=== PATIENT | male | born 1955 | race Caucasian/White ===

== ENCOUNTER 2017-12-18 17:41 | Observation (INO) | payer OTHER ==
[~2017-12-18] VITALS: Ht 185.4 cm; Wt 107.7 kg
--- NOTE | 2017-12-18 18:34 | ED GI/GU/ABDOMINAL COMPLAINT ---
History of Present Illness General Chief Complaint: Abdominal Pain/Flank Pain Stated Complaint: ABD PAIN S/P SURGERY ?PER STONES IN BLADDER Source: patient Exam Limitations: no limitations Vital Signs & Intake/Output Vital Signs & Intake/Output Vital Signs Date Time Temp Pulse Resp B/P B/P Pulse O2 O2 Flow FiO2 Mean Ox Delivery Rate 12/19 2055 99.6 66 16 132/62 96 Room Air 12/18 1944 73 18 144/76 95 Room Air 12/18 1928 Room Air 12/18 1749 98.8 76 18 133/82 98 Room Air Allergies Coded Allergies: No Known Allergies (12/15/17) Triage Note: 62 YO MALE TO TRIAGE BY DR HERMAN FOR EVAL OF HUMPHREY NOT DRAINING AND BLOOD IN HUMPHREY BAG. PT HAD STONES FROM BLADDER REMOVED TODAY, STATES AFTER HE WENT HOME HE HAD SEVER PAIN IN THE L KIDNEY REGION AND NOW SOME BLOOD IN THE HUMPHREY BAG AND URINE IS DRAINING SLOW. DR DAVILA WOULD LIKE TO BE NOTIFIED. Triage Nurses Notes Reviewed? yes Onset: Abrupt Duration: hour(s):, constant Location: generalized abdomen HPI: Pt is a 62 y/o M PMHx s/p mechanical TAVR in 1999 on coumadin, renal calculi s/p lithotrypsy w/ cystoscopy today complaining of right sided flank pain and vianney hematuria x 2 hours. Pt had the procedure this morning w/o complications and a humphrey leg bag placed. Shortly after arriving home, pt noticed a right sided flank pain and vianney hematuria in the bag. Pt then felt subjective chills. Pt took a meloxicam at home which brought relief. Pt currently is not in pain, denies N/V/D/C, chest pain, difficulty breathing, dizziness. P (Gregory De La Paz) Past History Travel History Traveled to [place] past 21 day No Medical History Any Pertinent Medical History? see below for history Neurological: NONE EENT: NONE Cardiovascular: hypertension, hyperlipidemia, Mechanical aortic valve replacement Respiratory: NONE Gastrointestinal: NONE Hepatic: NONE Renal: NONE Musculoskeletal: NONE Psychiatric: NONE Endocrine: NONE Blood Disorders: NONE Cancer(s): NONE AUDIO RECORDING ENGINEER/Reproductive: NONE Surgical History Surgical History: TAVR mechanical Psychosocial History Tobacco Use: Never used Family History Hx Contributory? Yes (Gregory De La Paz) Review of Systems Review of Systems Constitutional: Reports: see HPI. EENTM: Reports: no symptoms. Respiratory: Reports: no symptoms. Cardiovascular: Denies: see HPI. GI: Denies: see HPI. Genitourinary: Reports: see HPI. Musculoskeletal: Reports: no symptoms. Skin: Reports: no symptoms. Neurological/Psychological: Reports: no symptoms. Hematologic/Endocrine: Reports: see HPI. Immunologic/Allergic: Reports: no symptoms. All Other Systems: Reviewed and Negative (Gregory De La Paz) Physical Exam Physical Exam General Appearance: well developed/nourished, no apparent distress, alert Head: atraumatic, normal appearance Eyes: Bilateral: normal appearance. Neck: normal inspection, supple Respiratory: normal breath sounds, chest non-tender, no respiratory distress, lungs clear Cardiovascular: regular rate/rhythm Gastrointestinal: normal bowel sounds, soft, non-tender, No CVA tenderness, No organomegaly Male Genitals: Humphrey catheter placed, blood around site of insertion, leg bag is a Luke-Aid color, no clots appreciated Extremities: normal range of motion Neurologic/Psych: awake, alert, oriented x 3 Skin: intact, normal color, warm/dry Core Measures ACS in differential dx? No Sepsis Present: No Sepsis Focused Exam Completed? Yes (Gregory De La Paz) Progress Differential Diagnosis: ureterolithiasis, urinary retention, UTI/pyelo Plan of Care: Orders Procedure Date/time Status CBC WITHOUT DIFFERENTIAL 12/20 06 Active BASIC ELECTROLYTES PLUS BUN&CR 12/20 06 Active Nothing by Mouth 12/[address] in observation 12/19 2215 Active ED Holding Orders 12/19 2215 Active Saline Lock 12/18 2154 Active Pathway - chart 12/18 2154 Active Patient Data 12/18 2154 Active Code Status 12/18 2154 Active Continuous Bladder Irrigation 12/18 1952 Active CULTURE,URINE 12/18 1908 Active PARTIAL THROMBOPLASTIN TIME 12/18 183 Complete PROTHROMBIN TIME 12/18 183 Complete COMPREHENSIVE METABOLIC PANEL 12/18 183 Complete CBC WITHOUT DIFFERENTIAL 12/18 183 Complete VTE Mechanical Prophylaxis 12/18 UNK Active Vital Signs 12/18 UNK Active MISTAKE 12/18 UNK Active Intake & Output 12/18 UNK Active Humphrey, Insertion/Removal/Asses 12/18 UNK Active Activity/Ambulation 12/18 UNK Active Current Medications Sig/Quinn Start time Last Medication Dose Stop Time Status Admin Atorvastatin Calcium 40 MG 1700 12/19 170 UNVr (Lipitor) Citalopram 10 MG DAILY 12/19 899 UNVr Hydrobromide (Celexa) Ezetimibe 10 MG DAILY 12/19 899 UNVr (Zetia) Metoprolol Tartrate 25 MG BID 12/19 899 UNVr (Lopressor) Acetaminophen 1,000 MG Q6P PRN 12/18 2199 UNVr (Ofirmev) N/A 1 UNIT (No Carrier) Morphine Sulfate 2 MG Q4P PRN 12/18 2199 AC (MORPHINE SULFATE) Morphine Sulfate 4 MG Q4P PRN 12/18 2199 AC (MORPHINE SULFATE) Ondansetron HCl 4 MG Q8P PRN 12/18 2199 AC (Zofran) Laboratory Tests 12/18/17 1852: Anion Gap 7, Estimated GFR > 60, BUN/Creatinine Ratio 19.0, Glucose 101 H, Calcium 9.5, Total Bilirubin 1.2, AST 41, ALT 65, Alkaline Phosphatase 44, Total Protein 7.0, Albumin 4.2, Globulin 2.8, Albumin/Globulin Ratio 1.5, PT 12.1, INR 1.11, APTT 29, CBC w Diff NO MAN DIFF REQ, RBC 4.52 L, MCV 88.2, MCH 29.7, MCHC 33.7, RDW 13.7, MPV 8.1, Gran % 81.2 H, Lymphocytes % 10.6 L, Monocytes % 7.6, Eosinophils % 0.3, Basophils % 0.3, Absolute Granulocytes 8.3 H, Absolute Lymphocytes 1.1 L, Absolute Monocytes 0.8 H, Absolute Eosinophils 0, Absolute Basophils 0 Microbiology 12/18 1745 URINE ROUT: Urine Culture - RECD Initial ED EKG: none Comments: 12/18/2017 9:57:59 PM Patient Humphrey catheter is becoming occluded. His can require manual irrigation by nurses. Spoke with urologist and he wants the patient to be admitted overnight for observation. (Gregory De La Paz) Departure Departure Disposition: STILL A PATIENT Condition: Stable Clinical Impression Primary Impression: Clot hematuria Secondary Impressions: Humphrey catheter problem Referrals: Jose Ramon Stein MD (PCP/Family) Departure Forms: Customer Survey General Discharge Information Observation Note Spoke With: Juanito ROUSE,Leonid Resendiz Physician Advisor Notified: AZIZA ROUSE,NAVJOT Connor Place Patient In: Non-ED OBS Care Area Rationale for Observation: My rational for observation is as follows . Patient will require continuous bladder irrigation. Neurology consultation. Suctioning of the Humphrey catheter. Repeat H&H. (Gregory De La Paz) PA/WHEEL CLEANER Co-Sign Statement Statement: ED Attending supervision documentation- [X] I saw and evaluated the patient. I have also reviewed all the pertinent lab results and diagnostic results. I agree with the findings and the plan of care as documented in the PA's/WHEEL CLEANER's documentation. [X] I have reviewed the ED Record and agree with the PA's/WHEEL CLEANER's documentation. [] Additions or exceptions (if any) to the PAs/WHEEL CLEANER's note and plan are summarized below: [PTTO BE PLACED IN OBS FORHEMATURIA ON CBI] (Aziza ORUSE,Navjot Connor)
[2017-12-18 19:04] LABS: ABSOLUTE BASOPHIL COUNT 0 /CUMM (0.0-0.2); ABSOLUTE EOSINOPHIL COUNT 0 /CUMM (0.0-0.7); ABSOLUTE GRANULOCYTE CT 8.3 /CUMM (1.4-6.5); ABSOLUTE LYMPH COUNT 1.1 /CUMM (1.2-3.4); ABSOLUTE MONOCYTE COUNT 0.8 /CUMM (0.10-0.60); BASOPHIL % 0.3 % (0.0-2.0); EOSINOPHIL % 0.3 % (0-5); GRANULOCYTE % 81.2 % (42.2-75.2); HEMATOCRIT 39.9 % (42-52); MEAN CORPUSCULAR HGB 29.7 PG (27.0-31.0); MEAN CORPUSCULAR HGB CONC 33.7 G/DL (33.0-37.0); MEAN CORPUSCULAR VOLUME 88.2 FL (80.0-94.0); MEAN PLATELET VOLUME 8.1 FL (7.4-10.4); PLATELET COUNT 154 /CUMM (130-400); RBC DISTRIBUTION WIDTH 13.7 % (11.5-14.5); RED BLOOD CELL CT 4.52 /CUMM (4.70-6.10); WHITE BLOOD CELL COUNT 10.3 /CUMM (4.8-10.8)
[2017-12-18 19:16] LABS: PT 12.1 SEC (9.4-12.5); PTT 29 SEC (25-37)
[2017-12-18 23:30] VITALS: BP 130/84
[2017-12-19 00:52] VITALS: BP 120/60
[2017-12-19 06:35] VITALS: BP 120/82
--- NOTE | 2017-12-19 07:02 | History & Physical Pre-Op ---
General Information and HPI Source of Information: patient, family Exam Limitations: no limitations History of Present Illness: This patient underwent cystoscopy and laser lithotripsy of bladder stones yesterday. He was discharged with a correia. He returned to the ER with suprapubic pain and his correia not draining. A few small clots were irrigated out and CBI started. He was admitted. 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 EENT: NONE Cardiovascular: hypertension, hyperlipidemia, Mechanical aortic valve replacement Respiratory: NONE Gastrointestinal: APPENDECTOMY Hepatic: NONE Renal: nephrolithiasis, CYSTO/LITHOPRIPSY 12/18/17 Musculoskeletal: NONE Psychiatric: NONE Endocrine: NONE Blood Disorders: NONE Cancer(s): NONE RECORD TESTER/Reproductive: NONE Isolation History: Standard Surgical History Pertinent Surgical History: TAVR mechanical Past Family/Social History Psychosocial History Smoking Status: Never Smoked Exam & Diagnostic Data Last 24 Hrs of Vital Signs/I&O Vital Signs Date Time Temp Pulse Resp B/P B/P Pulse O2 O2 Flow FiO2 Mean Ox Delivery Rate 12/19 0635 98.8 75 18 120/82 96 12/19 0052 66 120/60 12/18 2330 99.0 78 18 130/84 93 Room Air 12/18 2216 99.3 77 18 137/73 94 Room Air 12/18 2056 99.6 66 16 132/62 96 Room Air 12/18 1944 73 18 144/76 95 Room Air 12/18 1928 Room Air 12/18 1749 98.8 76 18 133/82 98 Room Air Intake & Output 12/19 0800 12/19 0000 12/18 1600 Intake Total 9000 3000 Output Total 1150 300 Balance 7850 2700 Intake, Oral 0 Intake, Other 9000 3000 Number 0 Bowel Movements Output, Urine 1150 300 Patient 237 lb Weight No distress Heart: Irregularly irregular Lungs: clear Back: no CVA tenderness Abd: soft and non tender Genitalia: 3-way correia in place. CBI running with completely clear drainage Laboratory Tests 12/18 185 Chemistry Sodium (137 - 145 mmol/L) 136 L Potassium (3.5 - 5.1 mmol/L) 3.9 Chloride (98 - 107 mmol/L) 104 Carbon Dioxide (22 - 30 mmol/L) 26 Anion Gap (5 - 16) 7 BUN (9 - 20 mg/dL) 19 Creatinine (0.7 - 1.2 mg/dL) 1.0 Estimated GFR (>60 ml/min) > 60 BUN/Creatinine Ratio (7 - 25 %) 19.0 Glucose (65 - 99 mg/dL) 101 H Calcium (8.4 - 10.2 mg/dL) 9.5 Total Bilirubin (0.2 - 1.3 mg/dL) 1.2 AST (17 - 59 U/L) 41 ALT (21 - 72 U/L) 65 Alkaline Phosphatase (< 127 U/L) 44 Total Protein (6.3 - 8.2 g/dL) 7.0 Albumin (3.5 - 5.0 g/dL) 4.2 Globulin (1.9 - 4.2 gm/dL) 2.8 Albumin/Globulin Ratio (1.1 - 2.2 %) 1.5 Coagulation PT (9.4 - 12.5 SEC) 12.1 INR (0.90 - 1.17) 1.11 APTT (25 - 37 SEC) 29 Hematology CBC w Diff NO MAN DIFF REQ WBC (4.8 - 10.8 /CUMM) 10.3 RBC (4.70 - 6.10 /CUMM) 4.52 L Hgb (14.0 - 18.0 G/DL) 13.4 L Hct (42 - 52 %) 39.9 L MCV (80.0 - 94.0 FL) 88.2 MCH (27.0 - 31.0 PG) 29.7 MCHC (33.0 - 37.0 G/DL) 33.7 RDW (11.5 - 14.5 %) 13.7 Plt Count (130 - 400 /CUMM) 154 MPV (7.4 - 10.4 FL) 8.1 Gran % (42.2 - 75.2 %) 81.2 H Lymphocytes % (20.5 - 51.1 %) 10.6 L Monocytes % (1.7 - 9.3 %) 7.6 Eosinophils % (0 - 5 %) 0.3 Basophils % (0.0 - 2.0 %) 0.3 Absolute Granulocytes (1.4 - 6.5 /CUMM) 8.3 H Absolute Lymphocytes (1.2 - 3.4 /CUMM) 1.1 L Absolute Monocytes (0.10 - 0.60 /CUMM) 0.8 H Absolute Eosinophils (0.0 - 0.7 /CUMM) 0 Absolute Basophils (0.0 - 0.2 /CUMM) 0 Assessment/Plan Assessment/Plan: Imp: 1. s/p cystoscopy and laser litho of bladder stones with post op hematuria. Now much improved 2. Hx of A-fib and mechanical heart valve Plan: 1. Stop CBI. Continue correia 2. If urine remains clear this AM will likley discharge home with correia later today 3. Continue to hold coumadin As Ranked By This Provider Problem List: 1. Clot hematuria 2. Correia catheter problem
--- NOTE | 2017-12-19 07:25 | Patient Discharge Instructions ---
Discharge Instructions General Discharge Information You were seen/treated for: NEPHROLITIASIS You had these procedures: LITHROTRIPSY WITH CONTINUOUS BLADDER IRRIGATION CATHETER Watch for these problems: BLOOD CLOTS, EXCESSIVE BLEEDING INTO THE HUMPHREY BAG, PAIN OR PRESSURE WITH VOIDING, FEVERS OR CHILLS Call Surgeon to remove: Other (HUMPHREY MANAGEMENT) Special Instructions: RESUME HOME COUMADIN DOSE ON 12/21/17 HUMPHREY TO GRAVITY Diet Continue normal diet: Yes Activity Full Activity/No Limits: No Activity Self Limited: Yes Acute Coronary Syndrome Inclusion Criteria At DC or during hospital stay patient has or had the following: ACS DIAGNOSIS No Discharge Core Measures Meds if any: Prescribed or Continued at Discharge MAGGI/ARB if EF <40% No Aspirin No Meds if any: NOT Prescribed or Continued at Discharge Congestive Heart Failure Inclusion Criteria At DC or during hospital stay patient has or had the following: CHF DIAGNOSIS No Discharge Core Measures Meds if any: Prescribed or Continued at Discharge Meds if any: NOT Prescribed or Continued at Discharge Cerebrovascular accident Inclusion Criteria At DC or during hospital stay patient has or had the following: CVA/TIA Diagnosis No Discharge Core Measures Meds if any: Prescribed or Continued at Discharge Meds if any: NOT Prescribed or Continued at Discharge Venous thromboembolism Inclusion Criteria VTE Diagnosis No VTE Type NONE VTE Confirmed by (Test) NONE Discharge Core Measures - Per Current guidelines, there needs to be overlap - treatment for the first 5 days of Warfarin therapy. - If discharged on Warfarin prior to 5 days of - overlap therapy, the patient will need to be - assessed for post discharge needs including - *Post discharge parental anticoagulation - *Warfarin and/or parental anticoagulation education - *Follow up date to check INR post discharge At least 5 days overlap therapy as Inpatient No Meds if any: Prescribed or Continued at Discharge Note: Overlap Therapy is Warfarin and Anticoagulant Meds if any: NOT Prescribed or Continued at Discharge
--- NOTE | 2017-12-19 07:32 | PN- Urology ---
Subjective Subjective: 62 Y/O MALE WITH CBI -COMFORTABLE OVERNIGHT, URINE WITHOUT CLOTS OR BLOOD, PATIENT WITH NO COMPLAINTS Objective Vital Signs and I&Os Vital Signs Date Time Temp Pulse Resp B/P B/P Pulse O2 O2 Flow FiO2 Mean Ox Delivery Rate 12/19 0635 98.8 75 18 120/82 96 08/07 0052 66 120/60 / 2330 99.0 78 18 130/84 93 Room Air 12/18 2216 99.3 77 18 137/73 94 Room Air 12/18 2056 99.6 66 16 132/62 96 Room Air 12/18 1944 73 18 144/76 95 Room Air 12/18 1928 Room Air 12/18 1749 98.8 76 18 133/82 98 Room Air Intake & Output 12/19 0000 12/18 1600 12/18 0812/18 0000 12/17 1600 Intake Total 9000 3000 Output Total 1150 300 Balance 7850 2700 Intake, Oral 0 Intake, Other 9000 3000 Number 0 Bowel Movements Output, Urine 1150 300 Patient 237 lb Weight Physical Exam: ALERT AND ORIENTED WITHOUT COMPLAINTS VSS AFEBRILE HEART- RRR WITHOUT MRG CHEST- CTA SYMMETRIC ABD -ROUNDED WITHOUT DITENTION, NO TENDERNESS BILATERAL LOWER EXTREMITIES- NO EDEMA, SOFT HUMPHREY - TO GRAVITY -NO BLOOD OR CLOTS Current Medications: Current Medications Sig/Quinn Start time Last Medication Dose Route Stop Time Status Admin Acetaminophen 1,000 MG Q6P PRN 12/18 2199 AC N/A 1 UNIT IV Atorvastatin Calcium 40 MG 1700 12/19 1700 AC PO Citalopram 10 MG DAILY 12/19 899 AC Hydrobromide PO Ezetimibe 10 MG DAILY 12/19 899 AC PO Metoprolol Tartrate 25 MG BID 12/19 899 AC PO Morphine Sulfate 4 MG ONE TIME ONE 12/19 0245 DC 12/19 IV 12/19 0246 0305 Morphine Sulfate 2 MG Q4P PRN 12/18 2199 AC 12/19 IV 0119 Morphine Sulfate 4 MG Q4P PRN 12/18 2199 AC IV Morphine Sulfate 0 .STK-MED ONE 12/18 2156 DC .ROUTE Morphine Sulfate 4 MG ONCE ONE 12/18 2144 DC 12/18 IV 12/18 Ondansetron HCl 4 MG Q8P PRN 08/06 2200 AC IV Phenazopyridine HCl 0 .STK-MED ONE 12/18 2156 DC PO Phenazopyridine HCl 200 MG ONCE ONE 12/18 2144 DC 12/18 PO 12/18 Assessment/Plan Assessment/Plan S/P LITHOTRIPSY WITH CDI CONVERT TO REGULAR HUMPHREY OOB AMBULATING IF NO CLOTS OR BLOOD IN BAG AND PATIENT FEELS COMFORTABLE WITHOUT BLADDER SPASMS , D/C HOME AT NOON WITH FOLLOW-UP MONDAY AT OFFICE. STAY OFF COUMADIN PER DR BA UNTIL SEEN IN OFFICE ADVANCE DIET TO NORMAL. Core Measures Venous Thromboembolism VTE Risk Factors Surgery No Mechanical VTE Prophylaxis d/t N/A MechProphylax Ordered No VTE Pharm Prophylaxis d/t NA PharmProphylax ordered
[2017-12-19] MEDS ORDERED: CELEXA10 M1 PO (07:52)
[2017-12-19] MEDS ORDERED: LIPITOR40 M1 PO (07:52)
[2017-12-19] MEDS ORDERED: METOPROLOL TART25 M1 PO (07:53)
[2017-12-19] MEDS ORDERED: ZETIA10 M1 PO (07:53)
[2017-12-19] MEDS ORDERED: COUMADIN3 M1 PO (11:02)
[2017-12-19] MEDS ORDERED: PERCOCET 5-3251 EACH PO (11:03)
== END 2017-12-19 11:30 ==
LOC: ERH 17:41 → ERHI 22:16 → ENRESERV 22:22 → ENTRNSPT 22:40 → EDTRNSPTTM 22:45 → EDTRNSPTSTS 22:45 → EDTRNSPT 22:45 → 2NB 22:50 → CMPTRNSPT 22:53 → 2NB 22:54 → ENTRNSPT 12-19 11:20 → EDTRNSPT 12-19 11:22 → EDTRNSPTSTS 12-19 11:22 → 2NB 12-19 11:30 → CMPTRNSPT 12-19 11:33
PROVIDERS: Physician Assistant Medical
DX: T83.098A Other mechanical complication of other urinary catheter, initial encounter (principal); R31.9 Hematuria, unspecified; Z98.890 Other specified postprocedural states; I10 Essential (primary) hypertension; E78.5 Hyperlipidemia, unspecified; I48.91 Unspecified atrial fibrillation; Z79.01 Long term (current) use of anticoagulants; Z95.2 Presence of prosthetic heart valve; R10.9 Unspecified abdominal pain
CPT/HCPCS: 6040; 87086; 96372; 96376; G0378

== ENCOUNTER → 2017-12-18 | Day surgery (SDC) | payer OTHER ==
[~2017-12-18] VITALS: Ht 190.5 cm; Wt 106.6 kg
[~2017-12-18] MED LIST: CELEXA10 M1 PO; COUMADIN3 M1 PO; LIPITOR40 M1 PO; METOPROLOL TART25 M1 PO; PERCOCET 5-3251 EACH PO; ZETIA10 M1 PO
[2017-12-18 07:25] LABS: PT 11.9 SEC (9.4-12.5)
--- NOTE | 2017-12-18 10:42 | Operative Report ---
Operative/Inv Procedure Report Surgery Date: 12/18/17 Name of Procedure: Cystoscopy and laser lithotripsy of bladder stones Pre-Operative Diagnosis: Bladder calculi Post-Operative Diagnosis: same Estimated Blood Loss: 50ml to 100ml Surgeon/Water Proofer: Juanito ROUSE,Leonid Resendiz Anesthesia: laryngeal mask airway Drains: 22 fr correia Specimens: Bladder stones and urine culture Complications: none Condition: stable Operative Indication: Gross hematuria from bladder stones Operative/Procedure Note Note: The patient was taken to the cystoscopy room and identified. As placed in supine position on the cystoscopy table. A timeout was executed appropriately with the patient awake. Gen. anesthesia was induced via LMA. He was then placed in the dorsolithotomy position and prepped and draped in usual fashion for cystoscopy. Surgical pause was executed appropriately. A 22 German cystoscope sheath was placed into the bladder under direct vision using the 30 lens. Anterior urethra was normal. The prostatic urethra showed trilobar prostatic hypertrophy with a length of 4 cm. Upon entering the bladder multiple bladder calculi were seen. The bladder was left full and the cystoscope removed. The continuous flow laser cystoscope was then placed into the bladder under direct vision. 1000 holmium laser fiber was then placed through the scope. All bladder calculi were fragmented using the laser. At this point the Ellyik evacuator was used to remove all b stone fragments from the bladder. Findings: Multiple bladder calculi Discharge Disposition: PACU
== END ==
LOC: STS 03:25
PROVIDERS: Urology
DX: N21.0 Calculus in bladder (principal); N40.0 Benign prostatic hyperplasia without lower urinary tract symptoms; Z87.442 Personal history of urinary calculi; I10 Essential (primary) hypertension; I48.91 Unspecified atrial fibrillation; Z79.01 Long term (current) use of anticoagulants
CPT/HCPCS: 36415; 82355; 87086; J0690; J2250